=== PATIENT | female | born 1975 | race Hispanic/Latino ===

== ENCOUNTER → 2016-12-28 | Outpatient (CLI) | payer OTHER ==
[~2016-12-28] VITALS: Ht 160 cm; Wt 65.5 kg
[~2016-12-28] MED LIST: CALCIUM 500 MG1 EACH PO; CYCLOBENZAPRINE10 MG PO; METOCLOPRAMIDE10 MG PO; MOTRIN600 MG PO; PRENATAL TABLE1 EAC3 PO
[2016-12-28 14:54] VITALS: BP 135/73
== END | disposition home or self-care (01) ==
LOC: IVINF 12-26 11:00
DX: O36.0920 Maternal care for other rhesus isoimmunization, second trimester, not applicable or unspecified (principal); Z3A.24 24 weeks gestation of pregnancy; Z67.11 Type A blood, Rh negative
CPT/HCPCS: 96372; J2790

== ENCOUNTER 2017-01-27 09:19 | Outpatient (CLI) | payer OTHER ==
[~2017-01-27] VITALS: Ht 160 cm; Wt 68.2 kg
[2017-01-27 09:43] VITALS: BP 127/86
[2017-01-27 12:14] VITALS: BP 129/78
[2017-01-27 13:13] LABS: ADD MIUA? YES; BILIRUBIN NEGATIVE; BLOOD LARGE; COLOR YELLOW ((YELLOW)); GLUCOSE (STRIP) NEGATIVE; KETONES 20; LEUKOCYTES NEGATIVE; NITRITE NEGATIVE; PROTEIN (STRIP) NEGATIVE; SPECIFIC GRAVITY 1.005 (1.000-1.030); UROBILINOGEN 0.2 MG/DL (0.2-1.0)
[2017-01-27 14:06] LABS: BACTERIA RARE /HPF; EPITHELIAL CELLS 1+ /HPF; MUCUS TRACE /LPF; RED BLOOD CELLS TNTC /HPF (0-5); WHITE BLOOD CELLS 0-5 /HPF (0-5)
[2017-01-27 14:46] VITALS: BP 128/79
== END 2017-01-27 15:53 | disposition home or self-care (01) ==
LOC: LDRP-OP 09:19 → 2WEST 09:20 → LDRP-OP 04-15 19:45
PROVIDERS: Nurse Practitioner
DX: O36.8130 Decreased fetal movements, third trimester, not applicable or unspecified (principal); O99.89 Other specified diseases and conditions complicating pregnancy, childbirth and the puerperium; Z3A.33 33 weeks gestation of pregnancy
CPT/HCPCS: 59025; 81003; 82731; G0378; J7120

== ENCOUNTER 2017-03-02 20:12 | Inpatient (IN) | payer OTHER ==
[~2017-03-02] VITALS: Ht 160 cm; Wt 74.5 kg
[2017-03-02] MEDS ORDERED: REGLAN10 MG PO (20:41)
[2017-03-02 20:43] VITALS: BP 136/96
[2017-03-02 21:05] VITALS: BP 140/91
[2017-03-02 21:28] LABS: EOSINOPHIL (%) 0.4 % (0-5); IMMATURE GRANULOCYTE (%) 0.7 % (0.0-0.7); IMMATURE GRANULOCYTE COUNT 0.1 K/uL; INSTRUMENT ABS NEUTROPHIL CT 6.8 K/uL; LYMPHOCYTE COUNT 1.8 K/uL (1.0-2.8); MCH 28.7 PG (29.0-34.0); MCHC 32.5 G/DL (30.0-36.0); MCV 88.5 FL (83-99); MEAN PLAT.VOLUME 10.6 uM^3 (9.5-12.4); MONOCYTE (%) 7.1 % (3-12); MONOCYTE COUNT 0.7 K/uL (0-0.8); NEUTROPHIL (%) 72.6 % (45-76); NEUTROPHIL COUNT 6.8 K/uL (1.8-6.4); PLATELET COUNT 253 K/uL (156-360); RBC DIS.WIDTH-CV 15.6 % (11.8-14.6); RBC DIS.WIDTH-SD 50.4 % (39-53); RED BLOOD COUNT 4.07 M/uL (3.80-5.20); WHITE BLOOD COUNT 9.4 K/uL (4.1-10.2)
[2017-03-02 21:29] LABS: UR CREATININE CONCENTRATION 73.6 MG/DL
[2017-03-02 21:38] LABS: ANION GAP 8 MEQ/L (2-14); CHLORIDE 106 MEQ/L (99-109); POTASSIUM 3.7 MEQ/L (3.7-5.4); SAMPLE HEMOLYSIS CHECK 0; SAMPLE ICTERIC CHECK 0; SAMPLE LIPEMIA CHECK 1; SODIUM 135 MEQ/L (136-147); TOTAL BILIRUBIN 0.2 MG/DL (0.0-1.0)
[2017-03-02 21:44] LABS: ALKALINE PHOSPHATASE 199 IU/L (3-129); GFR ESTIMATE (CALCULATED) > 59 mL/min/; GLUCOSE 93 mg/dL (70-99); UREA NITROGEN (BUN) 11 mg/dL (9-23)
[2017-03-02 23:15] VITALS: BP 139/97
[2017-03-02 23:28] LABS: ADD MIUA? YES; BILIRUBIN NEGATIVE; BLOOD SMALL; COLOR YELLOW ((YELLOW)); GLUCOSE (STRIP) NEGATIVE; KETONES NEGATIVE; LEUKOCYTES NEGATIVE; NITRITE NEGATIVE; PROTEIN (STRIP) 30; SPECIFIC GRAVITY 1.012 (1.000-1.030); UROBILINOGEN 0.2 MG/DL (0.2-1.0)
[2017-03-02 23:44] LABS: BACTERIA RARE /HPF; EPITHELIAL CELLS 1+ /HPF; MUCUS RARE /LPF; UCUL ADDED? NO; WHITE BLOOD CELLS 0-5 /HPF (0-5)
[2017-03-02 23:45] LABS: CASTS PRESENT /LPF; CRYSTALS NONE SEEN; HYALINE CASTS 0-5 /LPF
[2017-03-03] VITALS (20 sets, daily range): BP systolic 119–156; BP diastolic 72–94
[2017-03-03] MEDS ORDERED: MOTRIN800 MG PO (12:12)
[2017-03-03] MEDS ORDERED: DILAUDID2 MG PO (12:12)
[2017-03-04] VITALS (7 sets, daily range): BP systolic 109–125; BP diastolic 63–85
[2017-03-04 06:44] LABS: EOSINOPHIL (%) 0.2 % (0-5); HEMATOCRIT 34.5 % (36.0-46.0); IMMATURE GRANULOCYTE (%) 0.5 % (0.0-0.7); IMMATURE GRANULOCYTE COUNT 0.1 K/uL; INSTRUMENT ABS NEUTROPHIL CT 9.6 K/uL; LYMPHOCYTE COUNT 1.5 K/uL (1.0-2.8); MCH 28.1 PG (29.0-34.0); MCHC 31.6 G/DL (30.0-36.0); MCV 88.9 FL (83-99); MEAN PLAT.VOLUME 10.7 uM^3 (9.5-12.4); MONOCYTE COUNT 0.6 K/uL (0-0.8); NEUTROPHIL (%) 81.7 % (45-76); NEUTROPHIL COUNT 9.6 K/uL (1.8-6.4); PLATELET COUNT 234 K/uL (156-360); RBC DIS.WIDTH-CV 15.9 % (11.8-14.6); RBC DIS.WIDTH-SD 51.1 % (39-53); RED BLOOD COUNT 3.88 M/uL (3.80-5.20); WHITE BLOOD COUNT 11.7 K/uL (4.1-10.2)
[2017-03-05 02:31] VITALS: BP 119/76
[2017-03-05 07:50] VITALS: BP 138/78
== END 2017-03-05 11:15 | disposition home or self-care (01) | DRG 766 ==
LOC: LDRP-OP 20:12 → 2WEST 20:13 → LDRP-OP 04-15 16:14
PROVIDERS: Midwife; Obstetrics & Gynecology
DX: O14.04 Mild to moderate pre-eclampsia, complicating childbirth (principal); O09.513 Supervision of elderly primigravida, third trimester; O16.4 Unspecified maternal hypertension, complicating childbirth; R51 Headache; Z3A.38 38 weeks gestation of pregnancy; Z37.0 Single live birth
CPT/HCPCS: 80053; 81003; 82570; 83030; 84156; 85025; 86850; 86870; 86900; 86901; 86905; 86920; 88302; G0378; J0595; J0690; J2274; J2405; J2765; J2790; J3010; J7120

== ENCOUNTER 2017-03-08 09:15 | Inpatient (IN) | payer OTHER ==
[~2017-03-08] VITALS: Ht 157.5 cm; Wt 66.0 kg
[2017-03-08] VITALS (10 sets, daily range): BP systolic 97–143; BP diastolic 59–84
[~2017-03-08 09:15] MED LIST changes: +DILAUDID2 MG PO; +MOTRIN800 MG PO; +REGLAN10 MG PO
[2017-03-08 10:09] LABS: EOSINOPHIL (%) 1.7 % (0-5); EOSINOPHIL COUNT 0.2 K/uL (0-0.3); HEMATOCRIT 38.5 % (36.0-46.0); IMMATURE GRANULOCYTE (%) 0.6 % (0.0-0.7); IMMATURE GRANULOCYTE COUNT 0.1 K/uL; INSTRUMENT ABS NEUTROPHIL CT 6.7 K/uL; LYMPHOCYTE COUNT 1.6 K/uL (1.0-2.8); MCH 28.5 PG (29.0-34.0); MCHC 32.2 G/DL (30.0-36.0); MCV 88.5 FL (83-99); MEAN PLAT.VOLUME 9.5 uM^3 (9.5-12.4); MONOCYTE COUNT 0.5 K/uL (0-0.8); NEUTROPHIL (%) 74.2 % (45-76); NEUTROPHIL COUNT 6.7 K/uL (1.8-6.4); RBC DIS.WIDTH-CV 15.3 % (11.8-14.6); RBC DIS.WIDTH-SD 49.7 % (39-53); RED BLOOD COUNT 4.35 M/uL (3.80-5.20)
[2017-03-08 10:10] LABS: PLATELET COUNT 359 K/uL (156-360)
[2017-03-08 10:14] LABS: CHLORIDE 108 mEq/L (99-109); POTASSIUM 3.9 mEq/L (3.7-5.4); SODIUM 140 mEq/L (136-147)
[2017-03-08 10:15] LABS: ADD MIUA? YES; BILIRUBIN NEGATIVE; BLOOD LARGE; COLOR STRAW ((YELLOW)); GLUCOSE (STRIP) NEGATIVE; KETONES NEGATIVE; LEUKOCYTES NEGATIVE; NITRITE NEGATIVE; PROTEIN (STRIP) NEGATIVE; SPECIFIC GRAVITY 1.002 (1.000-1.030); UROBILINOGEN 0.2 MG/DL (0.2-1.0)
[2017-03-08 10:15] LABS: MAGNESIUM 1.8 mg/dL (1.3-2.7)
[2017-03-08 10:16] LABS: GLUCOSE 89 mg/dL (70-99)
[2017-03-08 10:18] LABS: ANION GAP 10 MEQ/L (2-14); TOTAL BILIRUBIN 0.4 mg/dL (0.0-1.0)
[2017-03-08 10:20] LABS: ALKALINE PHOSPHATASE 149 IU/L (3-129); GFR ESTIMATE (CALCULATED) > 59 mL/min/
[2017-03-08 10:21] LABS: BACTERIA RARE /HPF; EPITHELIAL CELLS 1+ /HPF; MUCUS NONE SEEN /LPF; RED BLOOD CELLS 0-5 /HPF (0-5); WHITE BLOOD CELLS 0-5 /HPF (0-5)
[2017-03-08 10:21] LABS: UREA NITROGEN (BUN) 9 mg/dL (9-23)
[2017-03-08] MEDS ORDERED: REGLAN10 MG PO (11:02)
[2017-03-08] MEDS ORDERED: PRENATAL VITAM1 EA11 PO (16:18)
[2017-03-08] MEDS ORDERED: IBUPROFEN100 M1 PO (16:20)
[2017-03-08] MEDS ORDERED: PERCOCET 5/31 TABLET PO (16:21)
[2017-03-09] VITALS (10 sets, daily range): BP systolic 95–141; BP diastolic 62–96
[2017-03-09] MEDS ORDERED: LABETALOL HCL200 MG PO (10:13)
[2017-03-09] MEDS ORDERED: IBUPROFEN800 MG PO (10:14)
== END 2017-03-09 10:55 | disposition home or self-care (01) | DRG 776 ==
LOC: LDRP-OP 09:15 → EME 09:15 → EDSTATUS 11:42 → 2WEST 11:44
PROVIDERS: Emergency Medicine
DX: O14.05 Mild to moderate pre-eclampsia, complicating the puerperium (principal)
CPT/HCPCS: 80053; 81003; 83735; 84550; 85025; 99281; 99284; J0360; J2405; J2765; J3475; J7120